=== PATIENT | female | born 1970 | race Caucasian/White ===

== ENCOUNTER 2022-04-15 14:37 | Outpatient (CLI) | payer BC | END 2022-04-15 14:38 | disposition home or self-care (01) | LOC: LABBT 14:37 | PROVIDERS: ATTEND Otolaryngology Plastic Surgery within the Head & Neck | DX: Z01.818 Encounter for other preprocedural examination (principal); Z20.822 Contact with and (suspected) exposure to COVID-19 | CPT/HCPCS: 85014; 87811; 93005; 93010 ==